=== PATIENT | female | born 1985 | race Caucasian/White ===

== ENCOUNTER 2019-11-18 15:56 | Emergency (ER) | payer MEDICAID, OTHER ==
[~2019-11-18] VITALS: Ht 160 cm; Wt 50.8 kg
--- NOTE | 2019-11-18 16:11 | NUR ---
Dr White at the bedside for MSE.
--- NOTE | 2019-11-18 16:17 | NUR ---
Patient eloped from facility. ER physician notified.
== END 2019-11-18 16:20 | disposition left against medical advice (07) ==
LOC: ER 15:56
DX: S01.81XA Laceration without foreign body of other part of head, initial encounter (principal); Y04.2XXA Assault by strike against or bumped into by another person, initial encounter; Y93.89 Activity, other specified; Y92.89 Other specified places as the place of occurrence of the external cause; Y99.8 Other external cause status
CPT/HCPCS: A4663